=== PATIENT | female | born 1975 | race Caucasian/White ===

== ENCOUNTER 2018-05-12 00:01 | Emergency (ER) | payer SELFPAY ==
[~2018-05-12] VITALS: Ht 162.6 cm; Wt 72.6 kg
[2018-05-12 00:15] VITALS: BP 149/79
[2018-05-12] MEDS ORDERED: HYDROcodone/APAP 10/325 MG 1 TAB TAB PO ONE (02:40)
[2018-05-12] MEDS ORDERED: ONDANSETRON 4 MG ODT PO ONE (02:40)
[2018-05-12 03:04] VITALS: BP 138/73
== END 2018-05-12 03:04 | disposition home or self-care (01) ==
LOC: MED 00:01
DX: N39.0 Urinary tract infection, site not specified (principal)
CPT/HCPCS: 81002; 99283; Q0162